=== PATIENT | male | born 1970 | race African-American/Black ===

== ENCOUNTER 2018-11-26 16:52 | Emergency (ER) | payer SELFPAY ==
[~2018-11-26] VITALS: Ht 172.7 cm; Wt 92.5 kg
[2018-11-26 17:06] VITALS: BP 176/107
[2018-11-26] MEDS ORDERED: oxyCODONE/APAP (5/325 MG) 1 UDTAB TABLET PO ONE (17:30)
[2018-11-26] MEDS ORDERED: oxyCODONE/APAP (5/325 MG) 1 UDTAB TABLET ONE (17:30)
[2018-11-26] MEDS ORDERED: IBUPROFEN 400 MG TABLET PO ONE (17:30)
[2018-11-26] MEDS ORDERED: IBUPROFEN 400 MG TABLET ONE (17:30)
== END 2018-11-26 17:57 | disposition home or self-care (01) ==
LOC: ER 16:52
DX: M10.9 Gout, unspecified (principal)
CPT/HCPCS: 73130-TC

== ENCOUNTER 2021-08-02 19:34 | Emergency (ER) | payer MEDICAID ==
[~2021-08-02] VITALS: Ht 175.3 cm; Wt 95.3 kg
--- NOTE | 2021-08-02 19:55 | NUR ---
PT BIBSELF C/O SHARP MIDSTERNAL CP WHEN BREATHES IN, RADITES TO RT SHOULDER SWELLING IN LEFT ELBOW "FROM GOUT". PT ALERT AND ORIENTED X3. AMBULATORY WITH NON LABORED BREATHING.
[2021-08-02] MEDS ORDERED: INDOMETHACIN 25 MG CAPSULE PO STA (20:08)
--- NOTE | 2021-08-02 20:15 | NUR ---
XRAY AT BEDSIDE
--- NOTE | 2021-08-02 20:20 | NUR ---
LINE ESTABLISHED @ LEFT AC 18G. BLOOD TAKEN AND SENT TO LAB.
[2021-08-02 20:21] LABS: MONOCYTES # (AUTO) 1.2 K/uL (0.1-1.30)
[2021-08-02] MEDS ORDERED: predniSONE 20 MG TABLET ONE (20:21)
[2021-08-02] MEDS ORDERED: INDOMETHACIN 25 MG CAPSULE ONE (20:22)
[2021-08-02 20:24] LABS: BASOPHILS % (AUTO) 0.5 % (0.0-2.0); EOSINOPHILS % (AUTO) 0.6 % (0.0-6.0); HEMATOCRIT 47 % (39-51); HEMOGLOBIN 14.9 g/dL (13.5-17.5); LYMPHOCYTES # (AUTO) 1.3 K/uL (0.8-4.8); LYMPHOCYTES % (AUTO) 13.3 % (20.0-44.0); MEAN CORPUSCULAR HGB CONC 32 g/dl (31.0-36.0); MEAN CORPUSCULAR VOLUME 73 fL (80-96); NEUTROPHILS # (AUTO) 7.3 K/uL (1.8-8.9); NEUTROPHILS % (AUTO) 73.6 % (43.0-81.0); PLATELET COUNT (AUTO) 350 K/uL (150-450); RED BLOOD CELL COUNT(AUTO) 6.36 MIL/uL (4.5-6.0)
[2021-08-02] MEDS ORDERED: predniSONE 50 MG TABLET PO ONE (20:30)
[2021-08-02 20:33] LABS: CALCIUM, SERUM 9.1 mg/dL (8.5-10.1); CARBON DIOXIDE 26 mmol/L (21-32); CHLORIDE 100 mmol/L (98-107); CREATININE 1.1 mg/dL (0.6-1.3); GLUCOSE 107 mg/dL (74-106); POTASSIUM 3.8 mmol/L (3.5-5.1); SODIUM SERUM 136 mmol/L (136-145); UREA NITROGEN, BLOOD 10 mg/dL (7-18)
[2021-08-02 21:08] LABS: LYMPHOCYTES % (MANUAL) 17 % (16-48); MONOCYTES % (MANUAL) 6 % (0-11.0); NEUTROPHILS % (MANUAL) 77 (42-76)
[2021-08-02] MEDS ORDERED: ALLO100T PO (21:29)
[2021-08-02] MEDS ORDERED: HYDR-3976 GT (21:29)
[2021-08-02] MEDS ORDERED: INDO50CA92 PO (21:29)
[2021-08-02] MEDS ORDERED: PRED50TA PO (21:29)
[2021-08-02 21:38] VITALS: BP 156/98
--- NOTE | 2021-08-02 21:38 | NUR ---
Patient discharged to home in stable condition. Written and verbal after care instructions given. Patient verbalizes understanding of instruction. RX GIVEN
== END 2021-08-02 21:41 | disposition home or self-care (01) ==
LOC: ER 19:35
DX: R07.89 Other chest pain (principal); M70.22 Olecranon bursitis, left elbow; M25.511 Pain in right shoulder; I10 Essential (primary) hypertension; M10.9 Gout, unspecified; Y93.89 Activity, other specified
CPT/HCPCS: 36415; 71045; 80048; 84484; 85007; 85025; 93005; 99285; J7512

== ENCOUNTER 2021-08-26 18:55 | Emergency (ER) | payer MEDICAID ==
[~2021-08-26] VITALS: Ht 172.7 cm; Wt 97.5 kg
[~2021-08-26 18:55] MED LIST: ALLO100T PO; HYDR-3976 GT; INDO50CA92 PO; PRED50TA PO
--- NOTE | 2021-08-26 19:29 | NUR ---
LAB CALLED TO DRAW PT
[2021-08-26] MEDS ORDERED: HYDROCODONE/APAP 10/325MG TABLET PO ONE (19:30)
[2021-08-26] MEDS ORDERED: predniSONE 50 MG TABLET PO ONE (19:30)
--- NOTE | 2021-08-26 19:36 | NUR ---
BIB SELF C/O L SIDED RIB/UPPER BACK PAIN WITH INCREASED PAIN WITH TAKING DEEP BREATHS X TODAY. ALSO C/O R GREATER TOE PAIN DUE TO CHRONIC GOUT HAS NOT BEEN TAKING PRESCRIBED ALLOPURINOL. PT PLACED ON MONITOR V/S BREATHING EVEN AND UNLABORED MD WAS AT BEDSIDE FOR EVAL.
[2021-08-26] MEDS ORDERED: predniSONE 20 MG TABLET ONE (19:48)
[2021-08-26] MEDS ORDERED: HYDROCODONE/APAP 10/325MG TABLET ONE (19:48)
--- NOTE | 2021-08-26 20:00 | NUR ---
PATIENT REFUSED BLOOD DRAW, RIKS AND BENEFITS EXPLAINED X 2.
[2021-08-26] MEDS ORDERED: PRED20TA PO (21:20)
[2021-08-26] MEDS ORDERED: TRAM50TA2 PO (21:20)
--- NOTE | 2021-08-26 21:33 | NUR ---
Patient discharged to home in stable condition. Written and verbal after care instructions given. Patient verbalizes understanding of instruction.
[2021-08-26 21:49] VITALS: BP 144/98
== END 2021-08-26 21:50 | disposition home or self-care (01) ==
LOC: ER 19:01
DX: M10.071 Idiopathic gout, right ankle and foot (principal); R07.81 Pleurodynia; R07.89 Other chest pain; I10 Essential (primary) hypertension; Z79.899 Other long term (current) drug therapy
CPT/HCPCS: 71100; 93005; 99283; J7512

== ENCOUNTER 2021-09-10 09:29 | Emergency (ER) | payer SELFPAY ==
[~2021-09-10] VITALS: Ht 175.3 cm; Wt 97.5 kg
[~2021-09-10 09:29] MED LIST changes: +PRED20TA PO; +TRAM50TA2 PO
[2021-09-10 10:05] VITALS: BP 140/85
--- NOTE | 2021-09-10 10:06 | NUR ---
TO ER BED 7, BIBSELF C/O COUGH WITH MUCUS X6DAYS, PT STATES IT HURT MY ABDOMEN AREA WHEN I COUGH, AAOX3, BREATHING EVEN AND NON LABORED, CONNECTED TO MONITOR
--- NOTE | 2021-09-10 10:29 | NUR ---
COVID SWAB DONE AND SENT TO LAB
--- NOTE | 2021-09-10 10:30 | NUR ---
PRINCIPAL TECHNICAL ARCHITECT AT BEDSIDE
[2021-09-10] MEDS ORDERED: GUAI-671 PO (11:36)
[2021-09-10] MEDS ORDERED: AZIT250T PO (11:36)
--- NOTE | 2021-09-10 11:48 | NUR ---
Patient discharged to home in stable condition. Written and verbal after care instructions given. Patient verbalizes understanding of instruction.
== END 2021-09-10 11:48 | disposition home or self-care (01) ==
LOC: ER 09:36
DX: J40 Bronchitis, not specified as acute or chronic (principal); Z20.822 Contact with and (suspected) exposure to COVID-19; M10.9 Gout, unspecified; I10 Essential (primary) hypertension; Z79.899 Other long term (current) drug therapy
CPT/HCPCS: 71045; 87426; 99284; C9803

== ENCOUNTER 2022-01-05 09:39 | Emergency (ER) | payer SELFPAY ==
[~2022-01-05] VITALS: Ht 175.3 cm; Wt 97.5 kg
[~2022-01-05 09:39] MED LIST changes: +AZIT250T PO; +GUAI-671 PO
[2022-01-05 09:57] VITALS: BP 136/78
--- NOTE | 2022-01-05 10:15 | NUR ---
SEEN AND EXAMINED BY .
--- NOTE | 2022-01-05 10:25 | NUR ---
ROUTE SALES TRAINEE AT BEDSIDE FOR XRAY.
[2022-01-05] MEDS ORDERED: HYDROCODONE/APAP 5/325MG TABLET PO ONE (10:30)
[2022-01-05] MEDS ORDERED: IBUPROFEN 400 MG TABLET PO ONE (10:30)
[2022-01-05] MEDS ORDERED: HYDROCODONE/APAP 5/325MG TABLET ONE (10:31)
[2022-01-05] MEDS ORDERED: IBUPROFEN 400 MG TABLET ONE (10:31)
--- NOTE | 2022-01-05 11:03 | NUR ---
SS Note: Per pt.'s request, SW met with pt. Patient stated he is uninsured at thsi time and would like to apply for [employer]. SW called [employer] services department ext#[phone] and left voicemail with pt.'s contact info and medical record number and requested if they can help him file for [employer]. SW also provided pt. with the following resources and he accepted them. Pt. stated he will call [employer] and apply. MEDICAL INSURANCE SUPPORT SERVICES: [facility] [phone] Health Insurance Counseling/Advocacy Programs (HICAP)-Must have Medicare. Offers counseling for [employer] eligibility [phone] [facility] Etl Analyst [phone] www.[facility].[place].gov Medicare [phone] www.socialsecurity.org Social Security [phone] [employer] For Information regarding [employer] eligibility and application: [email or web address] Ashley Loaiza RN - onsite [employer] Music Artist (Direct Line), (Main Office) Local Field Office DPS [id number] [place] [address] [employer] Complaints Press About Us -[employer] [phone] [facility] Office [phone] [facility] [phone] [employer] Referral Your financially needy patient may qualify for [employer] if he/she meets any of the following criteria: 1.Is under 21 years of age. 2.Is 65 years of age or older. 3.Is , either currently or at any time during the current month. 4.Receives Social Security Disability or State Disability Insurance (SDI) payments, SSI/SSP (Supplemental Security Income/State Supplemental Program). 5.Has children under 21 years of age in his/her home (including an unborn or adopted child), and one of the parents is: "Absent. ". "Temporarily (30 days) or permanently (1 year) disabled. "Unemployed or working less than 100 hours per month. "Applying for or receiving Unemployment Benefits. "Applying for or heavy mobile equipment repairer's Compensation. "Applying for or receiving state Disability Benefits. 6.Receives [employer] ([employer] Work Opportunity and Responsibility to Kids) Previously called Aid to Families with Dependent Children (AFDC). 7.Is unable to work because of an illness or injury that is expected to last longer than one year. 8.Has one of the conditions listed below: "Cancer which is expected to be terminal despite treatment. "Diagnosed with breast or cervical cancer. "Paraplegia or quadriplegia. "Hemiplegia due to a stroke, and the stroke occurred more than three months in the past. "IQ less than 50. "Down syndrome- IQ less than 59. "Absence of more than one limb. "Amputation of a leg at the hip. "Diabetes with the amputation of a foot. "End stage renal disease with chronic dialysis or kidney transplant. "Cerebral palsy, muscular dystrophy, or muscular atrophy requiring the use of two crutches, a walker or wheelchair. "Total deafness. "Total blindness. "Acquired Immune Deficiency (AIDS) "Refugee status during a limited period of eligibility. Adult refugees may or may not be eligible depending upon how long they have been in the [place] "Patient must be a resident of [place] to get [facility]. A [place] resident is someone who lives here and plans to stay here, or someone who is working or looking for work in [place]. If the patient fits into any of these situations, refer to your on-site [facility] flow worker. If he/she does not fit into these criteria, seek other sources of reimbursement.
[2022-01-05] MEDS ORDERED: INDO50CA92 PO (12:00)
[2022-01-05] MEDS ORDERED: PRED20TA PO (12:00)
[2022-01-05] MEDS ORDERED: COLC0.6C3 PO (12:00)
[2022-01-05] MEDS ORDERED: COLCHICINE 0.6 MG TABLET ONE (12:04)
--- NOTE | 2022-01-05 12:05 | NUR ---
Patient discharged to home in stable condition. Written and verbal after care instructions given. Patient verbalizes understanding of instruction.
[2022-01-05] MEDS ORDERED: COLCHICINE 0.6 MG TABLET PO ONE (12:30)
== END 2022-01-05 12:09 | disposition home or self-care (01) ==
LOC: ER 09:54
DX: M79.671 Pain in right foot (principal); M10.9 Gout, unspecified; I10 Essential (primary) hypertension; Z60.2 Problems related to living alone; Z79.899 Other long term (current) drug therapy
CPT/HCPCS: 73630-TC

== ENCOUNTER 2022-01-31 11:20 | Emergency (ER) | payer SELFPAY ==
[~2022-01-31] VITALS: Ht 175.3 cm; Wt 90.7 kg
[~2022-01-31 11:20] MED LIST changes: +COLC0.6C3 PO
--- NOTE | 2022-01-31 11:43 | NUR ---
BIB C/O SORE THROAT, CHILLS, AND NASAL CONGESTION SINCE YESTERDAY S/P SLEEPING WITH THE WINDOW OPEN THE NIGHT BEFORE. +SOB. POX 95% ON RA. AAOX4, BREATHING EVEN AND UNLABORED. NOT IN RESP DISTRESS. ON MONITOR. VS STABLE. AWAITING MD FOR EVAL.
[2022-01-31] MEDS ORDERED: IV NS 0.9% 1,000 ML BAG IV ONE (13:30)
[2022-01-31] MEDS ORDERED: DEXAMETHASONE SOD PHOSPHATE 10 MG/ML VIAL IV ONE (13:30)
[2022-01-31 13:33] LABS: BASOPHILS # (AUTO) 0.1 K/uL (0.0-0.2); BASOPHILS % (AUTO) 0.4 % (0.0-2.0); EOSINOPHILS % (AUTO) 0.2 % (0.0-6.0); HEMATOCRIT 46 % (39-51); HEMOGLOBIN 14.6 g/dL (13.5-17.5); LYMPHOCYTES % (AUTO) 3.7 % (20.0-44.0); MEAN CORPUSCULAR HGB CONC 32 g/dl (31.0-36.0); MEAN CORPUSCULAR VOLUME 71 fL (80-96); MONOCYTES # (AUTO) 2.4 K/uL (0.1-1.30); MONOCYTES % (AUTO) 9.3 % (2.0-12.0); NEUTROPHILS # (AUTO) 22.3 K/uL (1.8-8.9); NEUTROPHILS % (AUTO) 86.4 % (43.0-81.0); PLATELET COUNT (AUTO) 271 K/uL (150-450); RED BLOOD CELL COUNT(AUTO) 6.43 MIL/uL (4.5-6.0); WHITE BLOOD COUNT (AUTO) 25.8 K/uL (4.3-11.0)
--- NOTE | 2022-01-31 13:37 | NUR ---
PT TAKEN TO CT VIA [facility]
[2022-01-31] MEDS ORDERED: CT SWABBABLE VALVE TRANS SET 1 EA INFUS.SET MC ONE (13:44)
[2022-01-31] MEDS ORDERED: IOHEXOL-300 100 ML VIAL IV ONE (13:44)
[2022-01-31] MEDS ORDERED: IV NS 0.9% 250 ML IV ONE (13:44)
[2022-01-31] MEDS ORDERED: DEXAMETHASONE SOD PHOSPHATE 10 MG/ML VIAL ONE (13:45)
[2022-01-31 13:57] LABS: CALCIUM, SERUM 9.2 mg/dL (8.5-10.1); CREATININE 1.1 mg/dL (0.6-1.3); POTASSIUM 3.9 mmol/L (3.5-5.1)
--- NOTE | 2022-01-31 14:01 | NUR ---
RAPID STREP SAMPLE OBTAINED AND SENT TO LAB
[2022-01-31] MEDS ORDERED: LORAZEPAM INJ 2 MG/ML VIAL ONE (15:17)
[2022-01-31] MEDS ORDERED: IV LR 1000 ML 1,000 ML IV ONE (15:30)
[2022-01-31] MEDS ORDERED: LORAZEPAM INJ 2 MG/ML VIAL IV ONE (15:30)
[2022-01-31] MEDS ORDERED: PIPERACILLIN /TAZOBACTAM 3.375 G in IV D5W 50 ML IV ONE (15:30)
--- NOTE | 2022-01-31 15:32 | NUR ---
IVF LR ADMINISTERED
[2022-01-31] MEDS ORDERED: EPIN0.3P3 IM (15:55)
[2022-01-31] MEDS ORDERED: AMOX500C2 PO (15:55)
--- NOTE | 2022-01-31 16:00 | NUR ---
FLUIDS INFUSING. PT TOLERATING WELL.
[2022-01-31] MEDS ORDERED: AMOXICILLIN TRIHYDRATE 500 MG CAPSULE PO ONE (17:00)
[2022-01-31] MEDS ORDERED: AMOXICILLIN TRIHYDRATE 250 MG CAPSULE ONE (17:08)
--- NOTE | 2022-01-31 17:16 | NUR ---
Patient discharged to home in stable condition. Written and verbal after care instructions given. Patient verbalizes understanding of instruction.
[2022-01-31 17:20] VITALS: BP 138/71
== END 2022-01-31 17:20 | disposition home or self-care (01) ==
LOC: ER 11:25
DX: J02.9 Acute pharyngitis, unspecified (principal); R00.0 Tachycardia, unspecified; D72.829 Elevated white blood cell count, unspecified; Z20.822 Contact with and (suspected) exposure to COVID-19; Z91.013 Allergy to seafood; M1A.9XX0 Chronic gout, unspecified, without tophus (tophi); Z87.891 Personal history of nicotine dependence; Z79.52 Long term (current) use of systemic steroids; J39.2 Other diseases of pharynx; I10 Essential (primary) hypertension; R13.10 Dysphagia, unspecified
CPT/HCPCS: 36415; 70491; 80048; 83605; 85025; 87040 ×2; 87426; 87880; 96361; 96365; 96374; 96375; 99285; C9803; J1100; J2060; J2543; J7030; J7050; J7060; J7120 ×2; Q9967; 86403-TC

== ENCOUNTER 2022-03-26 13:12 | Emergency (ER) | payer SELFPAY ==
[~2022-03-26] VITALS: Ht 175.3 cm; Wt 99.8 kg
[~2022-03-26 13:12] MED LIST changes: +AMOX500C2 PO; +EPIN0.3P3 IM
[2022-03-26 13:57] LABS: MONOCYTES # (AUTO) 1.7 K/uL (0.1-1.30)
[2022-03-26 14:30] LABS: BASOPHILS # (AUTO) 0.1 K/uL (0.0-0.2); BASOPHILS % (AUTO) 0.5 % (0.0-2.0); EOSINOPHILS % (AUTO) 0.9 % (0.0-6.0); HEMATOCRIT 43 % (39-51); HEMOGLOBIN 13.4 g/dL (13.5-17.5); LYMPHOCYTES # (AUTO) 2.2 K/uL (0.8-4.8); LYMPHOCYTES % (AUTO) 19.6 % (20.0-44.0); MEAN CORPUSCULAR HGB CONC 32 g/dl (31.0-36.0); MEAN CORPUSCULAR VOLUME 72 fL (80-96); MONOCYTES % (AUTO) 15.8 % (2.0-12.0); NEUTROPHILS % (AUTO) 63.2 % (43.0-81.0); PLATELET COUNT (AUTO) 343 K/uL (150-450); RED BLOOD CELL COUNT(AUTO) 5.91 MIL/uL (4.5-6.0)
[2022-03-26 14:48] LABS: CALCIUM, SERUM 9.4 mg/dL (8.5-10.1); POTASSIUM 3.8 mmol/L (3.5-5.1)
[2022-03-26 16:29] VITALS: BP 138/90
--- NOTE | 2022-03-26 16:29 | NUR ---
Patient discharged to home in stable condition. Written and verbal after care instructions given. Patient verbalizes understanding of instruction.
[2022-03-26] MEDS ORDERED: GUAI1TBM19 PO (16:31)
[2022-03-26] MEDS ORDERED: BENZ-13 PO (16:31)
== END 2022-03-26 16:29 | disposition home or self-care (01) ==
LOC: ER 13:13
DX: J06.9 Acute upper respiratory infection, unspecified (principal); Z20.822 Contact with and (suspected) exposure to COVID-19; R07.89 Other chest pain; I44.0 Atrioventricular block, first degree; I10 Essential (primary) hypertension; G47.30 Sleep apnea, unspecified; M10.9 Gout, unspecified; Z79.899 Other long term (current) drug therapy
CPT/HCPCS: 36415; 71045; 80048; 83735; 84484 ×2; 85025; 87426; 87804; 93005; 99285; C9803 ×2; U0003

== ENCOUNTER 2022-08-03 07:15 | Emergency (ER) | payer MEDICAID ==
[~2022-08-03] VITALS: Ht 172.7 cm; Wt 90.7 kg
[~2022-08-03 07:15] MED LIST changes: +BENZ-13 PO; +GUAI1TBM19 PO
[2022-08-03 07:53] VITALS: BP 159/92
[2022-08-03] MEDS ORDERED: COLC0.6C3 PO (08:04)
[2022-08-03] MEDS ORDERED: IBUP-1957 PO (08:04)
[2022-08-03] MEDS ORDERED: ALLO100T PO (08:04)
[2022-08-03] MEDS ORDERED: HYDROCODONE/APAP 5/325MG TABLET ONE (08:13)
--- NOTE | 2022-08-03 08:21 | NUR ---
Patient discharged to home in stable condition. Written and verbal after care instructions given. Patient verbalizes understanding of instruction.
[2022-08-03] MEDS ORDERED: HYDROCODONE/APAP 5/325MG TABLET PO ONE (08:30)
== END 2022-08-03 08:22 | disposition home or self-care (01) ==
LOC: ER 07:19
DX: M79.89 Other specified soft tissue disorders (principal); M10.9 Gout, unspecified; M25.541 Pain in joints of right hand; I10 Essential (primary) hypertension; Z87.39 Personal history of other diseases of the musculoskeletal system and connective tissue; Z79.899 Other long term (current) drug therapy